=== PATIENT | female | born 1995 | race Caucasian/White ===

== ENCOUNTER 2017-10-15 13:31 | Emergency (ER) | payer OTHER ==
[2017-10-15] MEDS ORDERED: diphenhydrAMINE INJ 50 MG/ML VIAL IVP STA (15:12)
[2017-10-15] MEDS ORDERED: PROCHLORPERAZINE 10 MG/2 ML VIAL IVP STA (15:12)
[2017-10-15] MEDS ORDERED: SODIUM CHLORIDE 0.9% 1,000 ML IV ONE (15:12)
[2017-10-15] MEDS ORDERED: KETOROLAC 60 MG/2 ML VIAL IVP STA (15:12)
--- NOTE | 2017-10-15 15:15 | ED Physician Documentation ---
History of Present Illness - Stated complaint Stated Complaint: MIGRAINE - Chief complaint Chief Complaint: Neuro - Additonal information Additional information: hx from pt 22 f known migraines take elavil prophylaxis and also took a triptan and zofran when migraine started this Am s relief MYERS is R sided throbbing with photophobia NV typical of her migraines no fever or neck stiffness no numbness or weakness no trauma or CO exposure denies preg Review of Systems Constitutional: denies: Fever Ears: denies: Ear pain Throat: denies: Sore throat Cardiac: denies: Chest pain / pressure Respiratory: denies: Dyspnea, Cough GI: reports: Nausea, Vomiting. denies: Abdominal Pain : denies: Now EGA Musculoskeletal: denies: Neck pain Neurologic: reports: Headache. denies: Focal weakness, Numbness PD PAST MEDICAL HISTORY - Present Medications Home Medications: Ambulatory Orders Medication Instructions Recorded Confirmed Amitriptyline [Elavil] 10 mg PO QPM 10/15/17 10/15/17 - Allergies Allergies/Adverse Reactions: Allergies Allergy/AdvReac Type Severity Reaction Status Date / Time No Known Drug Allergies Allergy Verified 10/15/17 13:38 PD ED PE NORMAL - Vitals Vital signs reviewed: Yes - General General: Alert and oriented X 3 - HEENT HEENT: PERRL, EOMI, Other (globes soft, no TA cord or focal TTP) - Neck Neck: Supple, no meningeal sign - Cardiac Cardiac: RRR - Respiratory Respiratory: No respiratory distress, Clear bilaterally - Derm Derm: Normal color - Neuro Neuro: Alert and oriented X 3, 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, No motor deficit, Normal speech Eye Opening: Spontaneous Motor: Obeys Commands Verbal: Oriented GCS Score: 15 Results - Vitals Vitals: Vital Signs - 24 hr 10/15/17 10/15/17 13:35 15:45 Temperature 36.2 C L Heart Rate 72 72 Respiratory 16 12 Rate Blood Pressure 121/69 114/74 O2 Saturation 98 99 Oxygen O2 Source Room air PD MEDICAL DECISION MAKING - ED course ED course: better with toradol benadryl compazine and IVF Departure - Departure Disposition: 01 Home, Self Care Clinical Impression: Migraine Qualifiers: Migraine type: unspecified Status migrainosus presence: without status migrainosus Intractability: not intractable Qualified Code(s): G43.909 - Migraine, unspecified, not intractable, without status migrainosus Condition: Good Instructions: ED Headache Migraine Follow-Up: KEYANNA QUINTERO MD [Primary Care Provider] - Forms: Activity restrictions
[2017-10-15 18:34] VITALS: BP 112/74
== END 2017-10-15 17:30 | disposition home or self-care (01) ==
LOC: ED 13:31
DX: G43.909 Migraine, unspecified, not intractable, without status migrainosus (principal)
CPT/HCPCS: 96361; 96374; 96375; 99283; 99284; J1200

== ENCOUNTER 2017-11-13 13:28 | Emergency (ER) | payer OTHER ==
--- NOTE | 2017-11-13 13:35 | ED Physician Documentation ---
PD HPI HEADACHE - Stated complaint Stated Complaint: MIGRAINE - History obtained from History obtained from: Patient - History of Present Illness Timing - onset: How many hours ago (3-4), Today Timing - onset during: Rest Timing - duration: Hours Timing - details: Abrupt onset, Still present Worst headache ever?: No: Worst headache ever? Location: Front, Right Quality: Throbbing, Aching Associated symptoms: Nausea, Vomiting. No: Fever, Stiff neck, Weakness, Numbness, Syncope, Vision changes (but is light sensitive) Improved by: No: Dark room, Meds (tried her tryptan without improvement) Worsened by: Light, Noise Contributing factors: No: Anticoagulated, Recent illness, Trauma Similar symptoms before: Diagnosis (migraines and had had them infrequently (3- 4 a year) while on elavil daily, but PCP had taken her off of it couple months ago and has had 2 of them since.) Recently seen: Emergency Dept (a month ago for similar.) Review of Systems Constitutional: denies: Fever, Chills Eyes: reports: Photophobia. denies: Loss of vision Nose: denies: Rhinorrhea / runny nose, Congestion Throat: denies: Sore throat Respiratory: denies: Cough GI: reports: Nausea, Vomiting. denies: Abdominal Pain Skin: denies: Rash, Lesions Neurologic: reports: Headache. denies: Focal weakness, Numbness, Altered mental status, Head injury PD PAST MEDICAL HISTORY - Past Medical History Neuro: Headache/migraine - Present Medications Home Medications: Ambulatory Orders Medication Instructions Recorded Confirmed Amitriptyline [Elavil] 10 mg PO QPM #60 tablet 11/13/17 Promethazine Supp [Phenergan Supp] 25 mg ME Q6H PRN #5 supp 11/13/17 - Allergies Allergies/Adverse Reactions: Allergies Allergy/AdvReac Type Severity Reaction Status Date / Time No Known Drug Allergies Allergy Verified 11/13/17 13:39 - Social History Does the pt smoke?: No Smoking Status: Never smoker Does the pt drink ETOH?: No Does the pt have substance abuse?: No - Family History Family history: reports: Non contributory PD ED PE NORMAL - Vitals Vital signs reviewed: Yes - General General: Alert and oriented X 3, Well developed/nourished, Other (appears in pain and nauseated) - HEENT HEENT: Atraumatic, PERRL (light sensitive), Pharynx benign - Neck Neck: Supple, no meningeal sign, No adenopathy - Cardiac Cardiac: RRR, No murmur - Respiratory Respiratory: Clear bilaterally - Derm Derm: Normal color, Warm and dry, No rash - Neuro Neuro: Alert and oriented X 3, 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 She would like to resume her prior elavil as it was reducing number of migraines. Seems reasonable. ), considered differential, d/w patient Departure - Departure Disposition: 01 Home, Self Care Clinical Impression: Migraine Qualifiers: Migraine type: unspecified Status migrainosus presence: without status migrainosus Intractability: not intractable Qualified Code(s): G43.909 - Migraine, unspecified, not intractable, without status migrainosus Condition: Stable Record reviewed to determine appropriate education?: Yes Instructions: ED Headache Migraine Follow-Up: KEYANNA QUINTERO MD [Primary Care Provider] - Prescriptions: Amitriptyline [Elavil] 10 mg PO QPM #60 tablet Promethazine Supp [Phenergan Supp] 25 mg ME Q6H PRN #5 supp PRN Reason: Nausea / Vomiting Comments: Resume your prior Elavil 10 mg nightly to reduce the number of migraines. Drink lots of fluids. For future migraines, continue your triptan and Zofran. You can combine it with some ibuprofen. If you are having vomiting despite the Zofran, you could also use promethazine suppository and see if that would allow for taking medication and improving the migraine at home. Return as needed for subsequent problems per
[2017-11-13] MEDS ORDERED: SODIUM CHLORIDE 0.9% 1,000 ML IV ONE (13:42)
[2017-11-13] MEDS ORDERED: KETOROLAC 30 MG/ML VIAL IVP STA (13:43)
[2017-11-13] MEDS ORDERED: PROCHLORPERAZINE 10 MG/2 ML VIAL IVP STA (13:43)
[2017-11-13] MEDS ORDERED: diphenhydrAMINE INJ 50 MG/ML VIAL IVP STA (13:43)
[2017-11-13 15:17] VITALS: BP 124/72
== END 2017-11-13 15:14 | disposition home or self-care (01) ==
LOC: ED 13:28
DX: G43.909 Migraine, unspecified, not intractable, without status migrainosus (principal)
CPT/HCPCS: 96361; 96374; 96375; 99283; 99284; J1200

== ENCOUNTER 2017-11-16 15:39 | Emergency (ER) | payer OTHER ==
[2017-11-16] MEDS ORDERED: PROCHLORPERAZINE 10 MG/2 ML VIAL IVP STA (15:50)
[2017-11-16] MEDS ORDERED: diphenhydrAMINE INJ 50 MG/ML VIAL IVP STA (15:50)
[2017-11-16] MEDS ORDERED: DEXAMETHASONE 10 MG/ML VIAL IVP STA (15:50)
[2017-11-16] MEDS ORDERED: KETOROLAC 30 MG/ML VIAL IVP STA (15:50)
--- NOTE | 2017-11-16 15:54 | ED Physician Documentation ---
PD HPI HEADACHE - Stated complaint Stated Complaint: MIGRAINE - Chief complaint Chief Complaint: Neuro - History obtained from History obtained from: Patient - History of Present Illness Timing - onset: Today (Gradual onset headache over the last hour consistent with prior migraines with nausea and light sensitivity. She has had more frequent migraines lately because she has been off of her Elavil, she was seen here 2 days ago and prescribed this but she has not restarted it yet. No fever. ) Review of Systems Constitutional: denies: Fever, Chills Throat: denies: Dental pain / toothache, Sore throat Cardiac: denies: Chest pain / pressure, Palpitations Respiratory: denies: Dyspnea, Cough PD PAST MEDICAL HISTORY - Past Medical History Neuro: Headache/migraine - Present Medications Home Medications: Ambulatory Orders Medication Instructions Recorded Confirmed Amitriptyline [Elavil] 10 mg PO QPM #60 tablet 11/13/17 Promethazine Supp [Phenergan Supp] 25 mg AR Q6H PRN #5 supp 11/13/17 - Allergies Allergies/Adverse Reactions: Allergies Allergy/AdvReac Type Severity Reaction Status Date / Time No Known Drug Allergies Allergy Verified 11/13/17 13:39 - Social History Does the pt smoke?: No Smoking Status: Never smoker Does the pt drink ETOH?: No Does the pt have substance abuse?: No PD ED PE NORMAL - Vitals Vital signs reviewed: Yes - General General: Alert and oriented X 3, Well developed/nourished, Other (photophobic) - HEENT HEENT: PERRL, EOMI - Neck Neck: Supple, no meningeal sign, No bony TTP - Neuro Neuro: Alert and oriented X 3 Eye Opening: Spontaneous Motor: Obeys Commands Verbal: Oriented GCS Score: 15 - Psych Psych: Normal mood, Normal affect Results - Vitals Vitals: Vital Signs - 24 hr 11/16/17 15:44 Temperature 36.2 C L Heart Rate 72 Respiratory 16 Rate Blood Pressure 117/66 O2 Saturation 98 Oxygen O2 Source Room air PD MEDICAL DECISION MAKING - ED course ED course: She was given IV fluids, Compazine, Benadryl, Toradol, and Decadron. On recheck at 446 her symptoms had resolved. Departure - Departure Disposition: 01 Home, Self Care Clinical Impression: Migraine Qualifiers: Migraine type: without aura Status migrainosus presence: without status migrainosus Intractability: not intractable Qualified Code(s): G43.009 - Migraine without aura, not intractable, without status migrainosus Condition: Good Record reviewed to determine appropriate education?: Yes Instructions: ED Headache Migraine Comments: Start the Elavil tonight, return anytime if worse [place]
[2017-11-16 17:19] VITALS: BP 108/59
== END 2017-11-16 17:18 | disposition home or self-care (01) ==
LOC: ED 15:39
DX: G43.009 Migraine without aura, not intractable, without status migrainosus (principal)
CPT/HCPCS: 96374; 96375; 99283; 99284; J1200

== ENCOUNTER 2017-12-05 09:48 | Emergency (ER) | payer OTHER ==
[2017-12-05] MEDS ORDERED: SODIUM CHLORIDE 0.9% 1,000 ML IV ONE (10:05)
[2017-12-05] MEDS ORDERED: diphenhydrAMINE INJ 50 MG/ML VIAL IVP STA (10:06)
[2017-12-05] MEDS ORDERED: KETOROLAC 30 MG/ML VIAL IVP STA (10:06)
[2017-12-05] MEDS ORDERED: PROCHLORPERAZINE 10 MG/2 ML VIAL IVP STA (10:06)
--- NOTE | 2017-12-05 10:08 | ED Physician Documentation ---
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 denies: Focal weakness, Numbness Immunocompromised: denies: Immunocompromised PD PAST MEDICAL HISTORY - Past Medical History Neuro: Headache/migraine Other Past Medical History: also on elavil - Present Medications Home Medications: Ambulatory Orders Medication Instructions Recorded Confirmed Ondansetron HCl [Zofran] 12/05/17 SUMAtriptan [Imitrex] 12/05/17 - Allergies Allergies/Adverse Reactions: Allergies Allergy/AdvReac Type Severity Reaction Status Date / Time No Known Drug Allergies Allergy Verified 11/13/17 13:39 - Social History Does the pt smoke?: No Smoking Status: Never smoker Does the pt drink ETOH?: No Does the pt have substance abuse?: No PD ED PE NORMAL - Vitals Vital signs reviewed: Yes - HEENT HEENT: Atraumatic, PERRL, EOMI, Other (globes soft, no TA TTP) - Neck Neck: Supple, no meningeal sign - Cardiac Cardiac: RRR - Respiratory Respiratory: No respiratory distress - Neuro Neuro: Alert and oriented X 3, No motor deficit, Normal speech Eye Opening: Spontaneous Motor: Obeys Commands Verbal: Oriented GCS Score: 15 Results - Vitals Vitals: Vital Signs - 24 hr 12/05/17 09:56 Temperature 36.6 C Heart Rate 74 Respiratory 18 Rate Blood Pressure 121/75 O2 Saturation 99 Oxygen O2 Source Room air PD MEDICAL DECISION MAKING - ED course ED course: better with toradol compazine benadryl and IVF Departure - Departure Disposition: Home, Self Care Clinical Impression: Migraine Qualifiers: Migraine type: unspecified Status migrainosus presence: without status migrainosus Intractability: not intractable Qualified Code(s): G43.909 - Migraine, unspecified, not intractable, without status migrainosus Condition: Good Instructions: ED Headache Migraine [facility] Forms: Activity restrictions
[2017-12-05 12:14] VITALS: BP 115/74
== END 2017-12-05 12:14 | disposition home or self-care (01) ==
LOC: ED 09:48
DX: G43.909 Migraine, unspecified, not intractable, without status migrainosus (principal)
CPT/HCPCS: 96361; 96374; 96375; 99283; 99284; J1200

== ENCOUNTER 2018-02-14 15:35 | Emergency (ER) | payer OTHER ==
[2018-02-14] MEDS ORDERED: PROCHLORPERAZINE 10 MG/2 ML VIAL IVP STA (15:48)
[2018-02-14] MEDS ORDERED: SODIUM CHLORIDE 0.9% 1,000 ML IV ONE (15:48)
[2018-02-14] MEDS ORDERED: DEXAMETHASONE 10 MG/ML VIAL IVP STA (15:48)
[2018-02-14] MEDS ORDERED: KETOROLAC 15 MG/ML VIAL IVP STA (15:48)
[2018-02-14] MEDS ORDERED: diphenhydrAMINE INJ 50 MG/ML VIAL IVP STA (15:48)
--- NOTE | 2018-02-14 15:50 | ED Physician Documentation ---
PD HPI HEADACHE - Stated complaint Stated Complaint: HEADACHE - Chief complaint Chief Complaint: Heent - History obtained from History obtained from: Patient - History of Present Illness Timing - onset: Today (23-year-old woman with frequent migraine presents with a gradual onset headache that is typical for her with frontal pressure and photophobia and phonophobia as well as vomiting. She tried Maxalt and Zofran at home without any relief. This is typical for her usual headaches. Of note she has an upcoming neurology appointment and is maintained on prophylactic amitriptyline as well) Review of Systems Constitutional: denies: Fever, Chills Respiratory: denies: Dyspnea, Cough GI: denies: Abdominal Pain : denies: Now EGA PD PAST MEDICAL HISTORY - Present Medications Home Medications: Ambulatory Orders Medication Instructions Recorded Confirmed Ondansetron HCl [Zofran] 12/05/17 SUMAtriptan [Imitrex] 12/05/17 - Allergies Allergies/Adverse Reactions: Allergies Allergy/AdvReac Type Severity Reaction Status Date / Time No Known Drug Allergies Allergy Verified 11/13/17 13:39 - Social History Does the pt smoke?: No Smoking Status: Never smoker Does the pt drink ETOH?: No Does the pt have substance abuse?: No PD ED PE NORMAL - Vitals Vital signs reviewed: Yes - General General: Alert and oriented X 3, Other (Uncomfortable, wearing sunglasses, no stiff neck. 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 As such I doubt subarachnoid hemorrhage. There are no infectious symptoms such as fever or stiff neck to make me suspect meningitis. No carbon monoxide exposure by history. As in the past she was treated with IV fluids, Benadryl, Compazine, Decadron, and Toradol with relief of her headache. - Sepsis Event Vital Signs: Vital Signs - 24 hr 02/14/18 15:38 Temperature 36.8 C Heart Rate 76 Respiratory 16 Rate Blood Pressure 127/68 O2 Saturation 99 Oxygen O2 Source Room air Departure - Departure Disposition: 01 Home, Self Care Clinical Impression: Migraine Qualifiers: Migraine type: without aura Status migrainosus presence: with status migrainosus Intractability: not intractable Qualified Code(s): G43.001 - Migraine without aura, not intractable, with status migrainosus Condition: Good Record reviewed to determine appropriate education?: Yes Instructions: ED Headache Migraine
[2018-02-14 18:16] VITALS: BP 107/58
== END 2018-02-14 17:50 | disposition home or self-care (01) ==
LOC: ED 15:35
DX: G43.001 Migraine without aura, not intractable, with status migrainosus (principal)
CPT/HCPCS: 96374; 96375; 99283; J1200

== ENCOUNTER 2018-04-15 05:05 | Emergency (ER) | payer OTHER ==
[2018-04-15] MEDS ORDERED: HYDROcod/ACETAM 10 MG/325 MG TABLET PO STA (05:29)
[2018-04-15] MEDS ORDERED: HYDROcodone/ACETAM 7.5 MG/325 MG 15 ML UDC PO STA (05:31)
--- NOTE | 2018-04-15 05:33 | ED Physician Documentation ---
History of Present Illness - Stated complaint Stated Complaint: PAIN S/P TONSILLECTOMY - Chief complaint Chief Complaint: Heent - Additonal information Additional information: 23-year-old female who is status post a tonsillectomy presents the emergency department for pain control. The patient ran out of her pain medications 2 days ago. The patient reports increased pain and decreased sleep secondary to the pain. The patient denies any active bleeding, cough, shortness of breath or swelling. Symptoms are described as moderate. Review of Systems Constitutional: denies: Fever Throat: reports: Sore throat Respiratory: denies: Cough GI: denies: Nausea, Vomiting : denies: Dysuria Skin: denies: Rash PD PAST MEDICAL HISTORY - Past Medical History Past Medical History: Yes Neuro: Migraines - Past Surgical History Past Surgical History: Yes HEENT: Tonsil/Adenoidectomy - Present Medications Home Medications: Ambulatory Orders Medication Instructions Recorded Confirmed Etonogestrel [Nexplanon] 68 mg SQ 04/15/18 Hydrocodone/Acetaminophen 15 ml PO Q6HR PRN 3 Days #1 04/15/18 [Hydrocodon-Acetamin 7.5-325/15] solution - Allergies Allergies/Adverse Reactions: Allergies Allergy/AdvReac Type Severity Reaction Status Date / Time No Known Drug Allergies Allergy Verified 04/15/18 05:19 - Social History Does the pt smoke?: No Smoking Status: Never smoker Does the pt drink ETOH?: No Does the pt have substance abuse?: No - Immunizations Immunizations are current?: Yes - POLST Patient has POLST: No PD ED PE NORMAL - General General: Alert and oriented X 3, No acute distress - HEENT HEENT: Atraumatic, PERRL, EOMI, Ears normal, Moist mucous membranes. No: Pharynx benign (The patient's posterior pharynx is status post a tonsillectomy, the patient has eschars in place. There is no signs of active bleeding. There is no evidence of swelling. The tongue is within normal limits. The patient has normal voice. No stridor. The uvula is nonedematous and midline) - Respiratory Respiratory: No respiratory distress - Derm Derm: Normal color - Neuro Neuro: Alert and oriented X 3, Normal speech - Psych Psych: Normal affect Results - Vitals Vitals: Vital Signs - 24 hr 04/15/18 05:10 Temperature 36.7 C Heart Rate 69 Respiratory 18 Rate O2 Saturation 97 Oxygen O2 Source Room air PD MEDICAL DECISION MAKING - ED course ED course: The patient's acute pain will be treated in the emergency department. I have advised follow-up with surgery. Presently, there is no findings that would necessitate further workup in the emergency department. The patient appears appropriate for discharge and ongoing outpatient management. I discussed warning signs and recommended returning to the emergency department immediately for worsening or any concerns. - Sepsis Event Vital Signs: Vital Signs - 24 hr 04/15/18 05:10 Temperature 36.7 C Heart Rate 69 Respiratory 18 Rate O2 Saturation 97 Oxygen O2 Source Room air Departure - Departure Disposition: 01 Home, Self Care Clinical Impression: Post-op pain Condition: Good Instructions: ED Pain Control Ch Prescriptions: Hydrocodone/Acetaminophen [Hydrocodon-Acetamin 7.5-325/15] 15 ml PO Q6HR PRN 3 Days #1 solution PRN Reason: Pain Comments: Please follow-up with your ENT surgeon for ongoing pain management. Please return to the emergency department for worsening symptoms or any concerns
[2018-04-15 05:42] VITALS: BP 120/72
== END 2018-04-15 05:40 | disposition home or self-care (01) ==
LOC: ED 05:05
DX: G89.18 Other acute postprocedural pain (principal)
CPT/HCPCS: 99283; A9270

== ENCOUNTER 2018-07-05 09:56 | Emergency (ER) | payer OTHER ==
[2018-07-05] MEDS ORDERED: SODIUM CHLORIDE 0.9% 1,000 ML IV ONE (10:41)
[2018-07-05] MEDS ORDERED: diphenhydrAMINE INJ 50 MG/ML VIAL IM STA (10:41)
[2018-07-05] MEDS ORDERED: DEXAMETHASONE 10 MG/ML VIAL IVP STA (10:42)
[2018-07-05] MEDS ORDERED: PROCHLORPERAZINE INJ 10 MG in SODIUM CHLORIDE 0.9% 50 ML IV ONE (10:42)
--- NOTE | 2018-07-05 10:44 | ED Physician Documentation ---
PD HPI HEADACHE - Stated complaint Stated Complaint: MIGRAINE - Chief complaint Chief Complaint: Neuro - History obtained from History obtained from: Patient - History of Present Illness Timing - onset: How many hours ago (4) Timing - onset during: Rest Timing - details: Gradual onset Worst headache ever?: Worst headache ever? (No) Location: Front Quality: Throbbing Associated symptoms: Nausea, Vomiting Worsened by: Light, Noise, Moving Similar symptoms before: Diagnosis (Migraine headaches.) - Treatment prior to arrival Treatment prior to arrival: Sumatryptan without relief. - Additional information Additional information: The patient is a 23-year-old female with history of migraine headaches, who presents with "migraine" that started this morning, about 4 hours prior to arrival. She has had multiple episodes of vomiting. She denies fever or abdominal pain. She reports photosensitivity. She has used sumatriptan at home, without relief. The last time her headache was this bad was about 2 months ago. She is currently on her menstrual period. Review of Systems Constitutional: denies: Fever Eyes: reports: Photophobia Ears: denies: Tinnitus/ringing Nose: denies: Congestion Throat: denies: Sore throat Cardiac: denies: Chest pain / pressure Respiratory: denies: Dyspnea, Cough GI: reports: Nausea, Vomiting. denies: Abdominal Pain, Diarrhea : denies: Dysuria Skin: denies: Rash Musculoskeletal: denies: Neck pain, Back pain Neurologic: reports: Headache. denies: Focal weakness, Numbness PD PAST MEDICAL HISTORY - Past Medical History Neuro: Migraines - Past Surgical History Past Surgical History: Yes General: Appendectomy Ortho: Other HEENT: Tonsil/Adenoidectomy - Present Medications Home Medications: Ambulatory Orders Medication Instructions Recorded Confirmed Etonogestrel [Nexplanon] 68 mg SQ 04/15/18 Hydrocodone/Acetaminophen 15 ml PO Q6HR PRN 3 Days #1 04/15/18 [Hydrocodon-Acetamin 7.5-325/15] solution Promethazine [Phenergan] 25 mg PO Q6H PRN #10 tab 07/05/18 - Allergies Allergies/Adverse Reactions: Allergies Allergy/AdvReac Type Severity Reaction Status Date / Time No Known Drug Allergies Allergy Verified 04/15/18 05:19 - Social History Does the pt smoke?: No Smoking Status: Never smoker Does the pt drink ETOH?: No Does the pt have substance abuse?: No - Immunizations Immunizations are current?: Yes - POLST Patient has POLST: No PD ED PE NORMAL - Vitals Vital signs reviewed: Yes (Normal) - General General: Alert and oriented X 3, Well developed/nourished - HEENT HEENT: Atraumatic, PERRL, EOMI, Moist mucous membranes, Pharynx benign, Other (Fundi with sharp disc margins, without papilledema.) - Neck Neck: Supple, no meningeal sign, No adenopathy, No JVD - Cardiac Cardiac: RRR, No murmur - Respiratory Respiratory: No respiratory distress, Clear bilaterally - Abdomen Abdomen: Soft, Non tender - Back Back: No CVA TTP - Derm Derm: No rash - Extremities Extremities: No edema, No calf tenderness / cord - Neuro Neuro: Alert and oriented X 3, No motor deficit, No sensory deficit Results - Vitals Vitals: Vital Signs - 24 hr 07/05/18 07/05/18 10:06 11:40 Temperature 36.0 C L 36.2 C L Heart Rate 81 60 Respiratory 18 15 Rate Blood Pressure 127/84 H 97/61 O2 Saturation 100 100 Oxygen O2 Source Room air PD MEDICAL DECISION MAKING - ED course Complexity details: reviewed old records, reviewed results, re-evaluated patient, considered differential, d/w patient ED course: The patient's presentation is most consistent with recurrent episodic headache. Her presentation does not suggest meningitis, intracerebral hemorrhage, temporal arteritis, or pseudotumor cerebri. Treatment in the emergency department included administration of normal saline 1 L IV, Compazine 10 mg IV, Benadryl 25 mg IV, Ketorolac 30 mg IV, and dexamethasone 10 mg IV. I discussed with her the expected course of illness, symptomatic treatment and outpatient follow-up, as well as potentially worrisome signs or symptoms that should prompt reevaluation in the emergency department. She is being discharged with prescription for Phenergan. Departure - Departure Disposition: 01 Home, Self Care Clinical Impression: Migraine Condition: Stable Instructions: ED Headache Migraine Follow-Up: KEYANNA QUINTERO MD [Primary Care Provider] - Prescriptions: Promethazine [Phenergan] 25 mg PO Q6H PRN #10 tab PRN Reason: Nausea / Vomiting Comments: Drink plenty of fluids. You can use Phenergan as prescribed as needed for nausea. Follow-up with your primary physician within 1-2 weeks. Call to schedule appointment. Return to the emergency department if you develop increasing headache, persistent vomiting, or otherwise worsening symptoms. Discharge Date/Time: 07/05/18 12:07
[2018-07-05] MEDS ORDERED: KETOROLAC 30 MG/ML VIAL IVP STA (10:52)
[2018-07-05 12:07] VITALS: BP 97/61
== END 2018-07-05 12:07 | disposition home or self-care (01) ==
LOC: ED 09:56
DX: G43.909 Migraine, unspecified, not intractable, without status migrainosus (principal)
CPT/HCPCS: 96365; 96372; 96375; 99283; 99284; J1200; J7040

== ENCOUNTER 2020-02-23 10:22 | Emergency (ER) | payer OTHER ==
[2020-02-23 10:44] VITALS: BP 112/74
[2020-02-23 11:25] LABS: BASOPHILS % (AUTO) 0.2 %; EOSINOPHILS % (AUTO) 0.3 %; HGB - HEMOGLOBIN 11.9 g/dL (12.0-16.0); LYMPHOCYTES # (AUTO) 1.7 10^3/uL (1.5-3.5); LYMPHOCYTES % (AUTO) 19.5 %; MEAN CORPUSCULAR HEMOGLOBIN 31.3 pg (27.0-31.0); MEAN CORPUSCULAR HGB CONC 35.2 g/dL (32.0-36.0); MEAN CORPUSCULAR VOLUME 88.9 fL (81.0-99.0); MEAN PLATELET VOLUME 10.4 fL (7.9-10.8); MONOCYTES # (AUTO) 0.6 10^3/uL (0.0-1.0); MONOCYTES % (AUTO) 6.8 %; NEUTROPHILS # (AUTO) 6.3 10^3/uL (1.5-6.6); NEUTROPHILS % (AUTO) 72.7 %; PLT - PLATELET COUNT 217 10^3/uL (130-450); RED CELL DISTRIBUTION WIDTH 12.3 % (12.0-15.0); WHITE BLOOD COUNT 8.7 x10^3/uL (4.8-10.8)
[2020-02-23 11:26] LABS: BILIRUBIN,URINE NEGATIVE (NEGATIVE); GLUCOSE, URINE (UA) NEGATIVE (NEGATIVE); KETONES,URINE (UA) NEGATIVE (NEGATIVE); LEUKOCYTE ESTERASE, URINE NEGATIVE (NEGATIVE); NITRITE,URINE NEGATIVE (NEGATIVE); OCCULT BLOOD,URINE NEGATIVE (NEGATIVE); PH,URINE 7.5 PH (5.0-7.5); PROTEIN,URINE NEGATIVE (NEGATIVE); UROBILINOGEN,URINE 0.2 (NORMAL) E.U./dL (NORMAL)
[2020-02-23 11:27] LABS: CLARITY,URINE CLEAR (CLEAR); HCG UR QUAL POSITIVE
[2020-02-23 11:39] LABS: ALBUMIN/GLOBULIN RATIO 1.2 (1.0-2.2); BILIRUBIN,TOTAL 0.8 mg/dL (0.2-1.0); CALCIUM 8.9 mg/dL (8.5-10.3); CREATININE 0.5 mg/dL (0.4-1.0); TOTAL PROTEIN 7.3 g/dL (6.7-8.2)
--- NOTE | 2020-02-23 11:41 | ED Physician Documentation ---
History of Present Illness - Stated complaint Stated Complaint: LT FLANK / RIB PX - Chief complaint Chief Complaint: Abd Pain - History obtained from History obtained from: Patient - History of Present Illness Timing: Today Pain level max: 2 Pain level now: 1 - Additonal information Additional information: 25-year-old female presents to the emergency department Stating that she took a home test that was positive. She states that her boyfriend has been deployed for the last few months She has noticed some left-sided abdominal pain recently. Nothing makes it better or worse. [place] like there was a lump on the left side of her abdomen earlier. Patient is 1, para 0. No vaginal bleeding. No discharge. No urinary symptoms. Review of Systems Constitutional: denies: Fever, Chills GI: denies: Vomiting, Diarrhea Skin: denies: Rash Musculoskeletal: denies: Neck pain, Back pain Neurologic: denies: Headache PD PAST MEDICAL HISTORY - Past Medical History Past Medical History: Yes Neuro: Migraines - Past Surgical History Past Surgical History: Yes General: Appendectomy Ortho: Other HEENT: Tonsil/Adenoidectomy - Present Medications Home Medications: Ambulatory Orders Medication Instructions Recorded Confirmed Etonogestrel [Nexplanon] 68 mg SQ 04/15/18 Hydrocodone/Acetaminophen 15 ml PO Q6HR PRN 3 Days #1 04/15/18 [Hydrocodon-Acetamin 7.5-325/15] solution Promethazine [Phenergan] 25 mg PO Q6H PRN #10 tab 07/05/18 - Allergies Allergies/Adverse Reactions: Allergies Allergy/AdvReac Type Severity Reaction Status Date / Time No Known Drug Allergies Allergy Verified 02/23/20 10:44 - Social History Does the pt smoke?: No Smoking Status: Never smoker Does the pt drink ETOH?: No Does the pt have substance abuse?: No - Immunizations Immunizations are current?: Yes - POLST Patient has POLST: No PD ED PE NORMAL - Vitals Vital signs reviewed: Yes - General General: Alert and oriented X 3, No acute distress - HEENT HEENT: Moist mucous membranes - Neck Neck: Supple, no meningeal sign - Cardiac Cardiac: RRR - Respiratory Respiratory: No respiratory distress, Clear bilaterally - Abdomen Abdomen: Soft, Non tender, Non distended, Other (Normal abdominal exam. Uterus palpable just below the umbilicus) - Back Back: No CVA TTP - Derm Derm: Warm and dry - Extremities Extremities: No edema - Neuro Neuro: Alert and oriented X 3 Results - Vitals Vitals: Vital Signs - 24 hr 02/23/20 10:40 Temperature 37.1 C Heart Rate 90 Respiratory 16 Rate Blood Pressure 112/74 O2 Saturation 100 Oxygen O2 Source Room air - Labs Labs: Laboratory Tests 02/23/20 02/23/20 02/23/20 11:00 11:00 11:10 WBC 8.7 RBC 3.80 L Hgb 11.9 L Hct 33.8 L MCV 88.9 MCH 31.3 H MCHC 35.2 RDW 12.3 Plt Count 217 MPV 10.4 Neut # (Auto) 6.3 Lymph # (Auto) 1.7 [place] # (Auto) 0.6 Eos # (Auto) 0.0 Baso # (Auto) 0.0 Absolute Nucleated RBC 0.00 Nucleated RBC % 0.0 Sodium Potassium Chloride Carbon Dioxide Anion Gap BUN Creatinine Estimated GFR (MDRD) Glucose Calcium Total Bilirubin AST ALT Alkaline Phosphatase Total Protein Albumin Globulin Albumin/Globulin Ratio Lipase HCG, Quant Urine Color LT. YELLOW Urine Clarity CLEAR Urine pH 7.5 Ur Specific [place] 1.010 1.010 Urine Protein NEGATIVE Urine Glucose (UA) NEGATIVE Urine Ketones NEGATIVE Urine Occult Blood NEGATIVE Urine Nitrite NEGATIVE Urine Bilirubin NEGATIVE Urine Urobilinogen 0.2 (NORMAL) Ur Leukocyte Esterase NEGATIVE Ur Microscopic Review NOT INDICATED Urine Culture Comments NOT INDICATED Urine HCG, Qual POSITIVE Blood Type 02/23/20 02/23/20 02/23/20 11:10 11:10 11:35 WBC RBC Hgb Hct MCV MCH MCHC RDW Plt Count MPV Neut # (Auto) Lymph # (Auto) [place] # (Auto) Eos # (Auto) Baso # (Auto) Absolute Nucleated RBC Nucleated RBC % Sodium 133 L Potassium 3.8 Chloride 103 Carbon Dioxide 21 Anion Gap 9.0 BUN 7 Creatinine 0.5 Estimated GFR (MDRD) 150 Glucose 82 Calcium 8.9 Total Bilirubin 0.8 AST 18 ALT 18 Alkaline Phosphatase 30 L Total Protein 7.3 Albumin 4.0 Globulin 3.3 Albumin/Globulin Ratio 1.2 Lipase 29 HCG, Quant 08476.00 Urine Color Urine Clarity Urine pH Ur Specific [place] Urine Protein Urine Glucose (UA) Urine Ketones Urine Occult Blood Urine Nitrite Urine Bilirubin Urine Urobilinogen Ur Leukocyte Esterase Ur Microscopic Review Urine Culture Comments Urine HCG, Qual Blood Type A POSITIVE PD MEDICAL DECISION MAKING - ED course Complexity details: reviewed results, re-evaluated patient, considered differential, d/w patient ED course: Bedside ultrasound reveals an intrauterine , biparietal diameter gives an estimated gestational age of 19 weeks, 1 day. Femur length measurement is approximately 19 weeks and 2 days. heart rate of 154 bpm. Images were shown to the patient. She is taking vitamins already. No significant lab abnormalities. Normal urinalysis. No vaginal bleeding or discharge. We will have her follow-up with her OB for further care. Patient counseled regarding signs and symptoms for which I believe and urgent re-evaluation would be necessary. Patient with good understanding of and agreement to plan and is comfortable going home at this time This document was made in part using voice recognition software. While efforts are made to proofread this document, sound alike and grammatical errors may occur. Departure - Departure Disposition: 01 Home, Self Care Clinical Impression: Intrauterine Condition: Good Instructions: ED Preg Established Normal Sxs Follow-Up: Your,doctor in 1 week [Other] Comments: [place] You are approximately 19 weeks along today. Return if you worsen. Discharge Date/Time: 02/23/20 11:56
== END 2020-02-23 11:56 | disposition home or self-care (01) ==
LOC: ED 10:22
DX: O99.89 Other specified diseases and conditions complicating pregnancy, childbirth and the puerperium (principal); R10.9 Unspecified abdominal pain; Z3A.19 19 weeks gestation of pregnancy
CPT/HCPCS: 36415; 80053; 81001; 81003; 81025; 83690; 84702; 85025; 86900; 86901; 87086; 99283; 99284

== ENCOUNTER 2020-03-12 18:01 | Outpatient (CLI) | payer OTHER ==
--- NOTE | 2020-03-15 13:36 | Ultrasound Report ---
PROCEDURE: OB Detailed Eval INDICATIONS: SUPERVISION OF NORMAL OUTSIDE/PRIOR DATING DATA: Last menstrual period (LMP): Not available. LMP-based estimated date of delivery (CEM): Not available. First dating scan (date and location): 03/12/2020. Estimated date of delivery (CEM) from first dating scan: 07/30/2020. TECHNIQUE: Real-time scanning was performed of the fetus, with image documentation and biometric measurements. Endovaginal scanning: Not needed COMPARISON: No images available. FINDINGS: General: A single living intrauterine gestation is present. Presentation: Breech Placenta: Placental position is anterior, without previa. Amniotic fluid index: 16.2 cm, normal for gestational age. heart rate: 151 beats per minute. Maternal cervical canal: 3.5 cm long; normal length is 2.5 cm or more. biometrics: Biparietal diameter: 4.6 cm, 20 weeks 1 day Head circumference: 17.1 cm, 19 weeks 5 days Abdominal circumference: 15.4 cm, 20 weeks 4 days Femur length: 3.3 cm, 20 weeks 4 days Estimated gestational age from initial scan: not applicable. Composite gestational age from present scan: 20 weeks 1 day Estimated weight and percentile: 359 g. Measurement variability in biometric dating: +/- 10 days from 12-20 weeks gestation, +/- 2 weeks from 20-30 weeks gestation, +/- 3 weeks at 30 weeks gestation or later. Anatomic survey: Neuro: Ventricles are normal at less than 10 mm. Cisterna magna is normal at 3-11 mm. Cerebellum i s normal in size and morphology. Nuchal skin fold: Normal at less than 6 mm between 14 and 20 weeks gestational age. Face: Nose and lips, facial profile are not well seen due to positioning. Spine: No evidence for spina bifida. Heart: 4-chambered heart is present, with normal ventricular outflow tracts. Diaphragm: Diaphragm is intact. Stomach: Left-sided stomach is present. Kidneys: No hydronephrosis. Normal is less than 5 mm in 2nd trimester, less than 7 mm in 3rd trimester. Cord: 3 vessel cord has orthotopic insertion. Bladder: Normal in size. Extremities: All 4 extremities are visualized. IMPRESSION: Current estimated gestational age is 20 weeks 1 day, with delivery date projected to be centered on 09/30/2019. No anomaly seen but the facial areas relatively poorly visualized due to positioning. Please correlate clinically for whether follow-up delayed targeted imaging in approxima tely one-2 weeks is warranted to complete the anatomic survey. The delivery date is projected t o be centered on 07/30/2020. Reviewed by: Reji Fernandez MD on 03/15/2020 1:35 PM PDT Approved by: Reji Fernandez MD on 03/15/2020 1:35 PM PDT Station ID: [id number]
== END 2020-03-12 18:02 | disposition home or self-care (01) ==
LOC: DI 18:01
PROVIDERS: ATTEND Obstetrics & Gynecology
DX: Z34.00 Encounter for supervision of normal first pregnancy, unspecified trimester (principal)
CPT/HCPCS: 76811

== ENCOUNTER 2023-03-23 08:57 | Outpatient (CLI) | payer OTHER ==
--- NOTE | 2023-03-23 09:38 | Sleep Patient Instructions ---
Sleep Center Visit Summary - Patient Visit Information Reason for Visit: Initial consult for evaluation of sleep disordered breathing and other sleep issues. - Patient Instructions Instructions Attached: Sleep Study, Sleep Clinic Visit, Sleep Study Home Monitor Additional Instructions: You will be completing a sleep study, either an in-lab polysomnography (PSG) or home sleep study (HST). You will follow-up in the sleep care office after the sleep study is completed to hear the results and talk about therapy, if needed. You will be called by our office staff to schedule this appointment, but you may contact us with any questions. - Clinic Information Contact: [facility] [address] [place] [address] [email or web address] T: [phone]
--- NOTE | 2023-03-23 09:42 | SLEEP CARE CONSULTATION ---
Information from patient questionnaire entered by Aisha Flores. I have reviewed and concur with the information entered by Aisha Flores. This document represents the service I personally performed and the decisions made by me, Mandi Parkinson ARNP. History of Present Illness Service Date and Time: 03/23/2023 0857 Reason for Visit: New patient Chief Complaint: reports: Unrefreshed sleep, Excessive daytime sleepiness, Fatigue, Frequent awakenings at night Date of Onset: 6YRS Usual bedtime: 10PM Time it takes to fall asleep: 1-2HRS Snores at night: Yes Observed to quit breathing while asleep: No Sleeps alone due to snoring: No Number of times waking at night: 4-5 Reasons for waking at night: reports: Other (UNKNOWN). denies: Choking, Snoring, Gasping for air Toss, Turn, or Twitch while sleeping: Yes Recalls having dreams: Yes Usually gets out of bed at: 4 AM for work; 7 AM on weekends Feels refreshed in the morning: No Morning headache: No Sleepy or fatigued during the day: Yes Ever fallen asleep while driving: No Takes day naps: Yes (has to nap every day; last usually 30 mins to 4 hours) Dreams during day naps: Yes Prior sleep studies: No Additional HPI information: I had the pleasure of seeing ANDREA GOMEZ today regarding the possibility of her having a sleep disorder. Her current complaints are unrefreshed sleep, fatigue, frequent night awakenings and excessive daytime sleepiness. She states she was advised by her dentist to be checked because of her TMJ issues, grinding teeth at night. She states she wakes up frequently at night. She never feels refreshed, like she got good sleep. She does have small child that gets her up at night but she still does not sleep through the night when they do. She lays down at 10 PM and will lay there and unable to fall asleep for 1-2 hours. Sometimes it is due to tinnitus, she has to use a fan to drown it out and sometimes she gets a "burst of energy" that keeps her awake. She is tired throughout the day and feels a need for a nap every day to make it through the day. These naps can be as short as 30 minutes to as long as 4 hour. - Parasomnia Symptoms Ever been unable to move upon waking from sleep: Yes (not often) Walks in sleep: No Talks in sleep: Yes (having conversations, telling other things to do) Ever acted out dreams in sleep: Yes (has sat up in bed and talked to others) Ever felt weak in the knees when startled or emotional: Yes (has fallen to ground a couple of times) Bothered by creepy, crawly, restless sensations in legs: Yes (just if sitting still; moves legs a lot in bed) Problems with memory or concentration: Yes (both) Subjective Initial [place] Sleepiness Scale score: 17 (03/22/23) Past Medical History Past Medical History: reports: Anemia, Anxiety, Attention deficit, Other (MIGRAINES) Social History 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 Patient is Single and lives in . Have you smoked in the past 12 months: No Alcohol use: Yes Alcohol amount and frequency: 1-2 DRINKS A WEEK Caffeine use: No Family History Family history of sleep disordered breathing: Yes Family Hx Sleep Apnea: Mother: Snoring, Sleep apnea - Treated, Father: Snoring, Sleep apnea - Treated, Sibling: Snoring Allergies and Home Medications Known drug allergies: No Drug allergies reviewed: Yes Home medication list reviewed: Yes (see updated list in EMR) Allergy and home medication list: Allergies No Known Drug Allergies Allergy (Verified 03/22/23 15:57) Review of Systems Review of systems same as previous: Yes Cardiovascular: denies: high blood pressure Respiratory: denies: shortness of breath Gastrointestinal: denies: heartburn Neurological: reports: headaches Psychiatric: reports: Attention Deficit Hyperactivity, anxiety Ear/Nose/Throat: reports: injury to nose, tonsillectomy, wisdom teeth removed Endocrine: reports: sluggishness Musculoskeletal: reports: back pain Physical Exam Vital signs obtained and entered by: AISHA Ross MA Blood Pressure: 110/62 (LEFT ARM) Cuff size: regular Heart Rate: 59 O2 Saturation: 98 Height: 5 ft 10 in Weight: 197 lb 9.6 oz Body Mass Index: 28.3 BMI Classification: Overweight Neck circumference: 14.75 Mouth and throat: narrow oropharynx Soft palate: long Hard palate: normal Uvula: normal Uvula visualization: 0% Mallampati Class IV Tongue: enlarged in size with teeth arriaga on lateral edges Tonsils: absent bilaterally Neck: normal w/o lymphadenopathy or thyromegaly Heart: regular rate and rhythm Lungs: clear bilaterally Impression and Plan 1. Suspected Obstructive Sleep Apnea-Hypopnea Syndrome, as suggested by a history of loud and irregular snoring, frequent awakening during the night, unrefreshed sleep, cognitive impairment, and excessive daytime sleepiness. Narrow oropharynx and obesity are common predisposing factors for obstructive sleep apnea-hypopnea syndrome. I recommend proceeding to polysomnography to confirm the diagnosis and to assess severity. If the patient has significant sleep disordered breathing, a manual CPAP titration study will also be performed to find the optimal treatment pressure. I informed the patient of what the sleep studies involve and after some discussion, obtained agreement to proceed. The pathophysiology of obstructive sleep apnea-hypopnea syndrome was discussed with the patient and health risks of cardiovascular and cerebrovascular disease if not treated. Risks of drowsy driving discussed in detail and patient advised to avoid long distance driving and to slab puller at the first sign of drowsiness. Patient agreed to plan. * Schedule polysomnography. * Avoid long distance driving or driving when feeling sleepy. * Avoid alcohol, sedative and muscle relaxant around bedtime. * Attempt to lose weight. * Review instructions provided by trained office staff on how to prepare for the sleep study. * Return for follow-up after sleep study completed. Counseling Topics: Weight loss health impact Visit Type: In Office Time Spent with Patient (minutes): 41 Provider Statement: I spent 100% of the Face to Face Visit with the patient with greater than 50% spent counseling the patient and coordination of care.
[2023-03-23 09:47] VITALS: BP 110/62; O2SAT 98
== END 2023-03-23 08:58 | disposition home or self-care (01) ==
LOC: SC 08:57
PROVIDERS: ATTEND Nurse Practitioner Family
DX: R06.83 Snoring (principal); G47.8 Other sleep disorders; G47.10 Hypersomnia, unspecified; R53.83 Other fatigue; E66.3 Overweight; Z68.28 Body mass index [BMI] 28.0-28.9, adult
CPT/HCPCS: 99203; 99212